=== PATIENT | female | born 1955 | race Caucasian/White ===

== ENCOUNTER 2021-04-01 00:29 | Inpatient (IN) | payer MEDICARE ==
[~2021-04-01] VITALS: Ht 154.9 cm; Wt 87.6 kg
[2021-04-01] VITALS (15 sets, daily range): BP systolic 85–136; BP diastolic 46–83
--- NOTE | 2021-04-01 00:35 | NUR ---
APPLICATION DEFENSE MANAGER RN: ENEDELIA CALDERÓN. PATIENT UPDATED ON PLAN OF CARE. NO NOTED ADDITIONAL NEEDS AT THIS TIME. CALL LIGHT WITHIN REACH, BED IN LOWEST LOCKED POSITION, SIDE RAILSX2 UP. PRIMARY RN AWARE.
[2021-04-01] MEDS ORDERED: PLEASE ENTER ALLERGIES MC SCH (01:00)
[2021-04-01] MEDS ORDERED: PANTOPRAZOLE 80 MG in SODIUM CHLORIDE 0.9% 50 ML IVPB ONE (01:00)
[2021-04-01] MEDS ORDERED: PANTOPRAZOLE 80 MG in SODIUM CHLORIDE 0.9% 100 ML IV SCH (01:00)
[2021-04-01] MEDS ORDERED: LIDOCAINE-MPF 1%, 5ML ONE (01:36)
--- NOTE | 2021-04-01 01:47 | NUR ---
PT SENT FROM [facility] FOR RECTAL BLEEDING X5 DAYS. PT REPORTS SOME DARK STOOL WITH N/V. NO IV ACCESS AT THIS TIME. DR DUKE TO BEDSIDE FOR A CENTRAL LINE. DR DUKE AWARE OF VS.
--- NOTE | 2021-04-01 02:07 | NUR ---
BEDSIDE REPORT GIVEN TO VICTOR MANUEL MANCILLA. DR DUKE IN ROOM DOING CENTRAL LINE.
--- NOTE | 2021-04-01 02:10 | NUR ---
BEDSIDE REPORT FROM YENNI RN, PT CARE TRANSFERRED AT THIS TIME. PT CENTRAL LINE BEING PLACED AT THIS TIME AND FRIEND AT BS. Patient is resting comfortably in bed. Bed in lowest, rails engaged, call light on lap. PT IS HYPOTENSIVE AT THIS TIME. LEONID.
[2021-04-01] MEDS ORDERED: ASPI-963 PO (02:14)
[2021-04-01] MEDS ORDERED: MULTIVITAMIN PO (02:14)
[2021-04-01] MEDS ORDERED: LISINOPRIL HCTZ PO (02:14)
[2021-04-01 02:27] LABS: BASOPHILS % (AUTO) 1 % (0-1); EOSINOPHILS % (AUTO) 1 % (1-7); LYMPHOCYTES % (AUTO) 28 % (22-44); MEAN CORPUSCULAR HEMOGLOBIN 28.5 pg (27.0-34.8); MEAN CORPUSCULAR HGB CONC 33.3 g/dL (32.4-35.8); MEAN PLATELET VOLUME 9.9 fL (7.4-10.4); MONOCYTES % (AUTO) 13 % (2-9); NEUTROPHILS % (AUTO) 58 % (42-75); PLATELET COUNT 74 x10^3/uL (130-400); RED BLOOD COUNT 2.47 x10^6/uL (3.82-5.3); RED CELL DISTRIBUTION WIDTH 27.3 % (9.6-15.2)
[2021-04-01 02:29] LABS: INTERNATIONAL NORMALIZED RATIO 1.58 (0.93-1.1); PROTHROMBIN TIME 16.5 Seconds (9.6-11.5)
[2021-04-01 02:33] LABS: ALANINE AMINOTRANSFERASE 17 U/L (12-78); ALBUMIN 1.8 g/dL (3.4-5.0); ANION GAP 9 mmol/L (5-15); CALCIUM 7.9 mg/dL (8.5-10.1); CHLORIDE 104 mmol/L (98-107); CREATININE 0.54 mg/dL (0.55-1.02)
[2021-04-01 02:38] LABS: ALKALINE PHOSPHATASE 65 U/L (45-117); BILIRUBIN,TOTAL 3.3 mg/dL (0.2-1.0); TOTAL PROTEIN 5.5 g/dL (6.4-8.2); TROPONIN I < 0.015 ng/mL (0.000-0.045)
[2021-04-01 02:54] LABS: <PLATELET ESTIMATE> DECREASED; <PLT MORPHOLOGY> NORMAL PLT MORPH; ANISOCYTOSIS 1+; OVALOCYTES 1+; TARGET CELLS 1+
[2021-04-01] MEDS ORDERED: ACETAMINOPHEN 325 MG TABLET ONE (02:54)
[2021-04-01] MEDS ORDERED: ACETAMINOPHEN 325 MG TABLET PO ONE (03:00)
--- NOTE | 2021-04-01 03:00 | NUR ---
RELIEF RN: STARTED ON TRANSFUSION. INFUSING WELL ON PUMP TO R IJ.
--- NOTE | 2021-04-01 03:11 | NUR ---
ELIAN RN: ADMITTING MD AT .
[2021-04-01] MEDS ORDERED: LORazepam 2 MG/ML, 1ML IV PRN ×5 (03:30)
[2021-04-01] MEDS ORDERED: LORazepam 0.5MG TABLET PO PRN (03:30)
[2021-04-01] MEDS ORDERED: ONDANSETRON 2MG/ML, 2ML IV PRN (03:30)
[2021-04-01] MEDS ORDERED: LORazepam 1MG TABLET PO PRN ×4 (03:30)
--- NOTE | 2021-04-01 03:45 | NUR ---
REPORT CALLED TO LOU RN, PT CARE TO BE TRANSFERRED UPON ARRIVAL TO THE FLOOR. WCTM. Patient is resting comfortably in bed. Bed in lowest, rails engaged, call light on lap. FRIEND AT BS. HOSPITALIST AT BS FOR EVAL AND POC. WCTM.
[2021-04-01] MEDS ORDERED: OCTREOTIDE 50 MCG/ML, 1ML (0.05MG/ML) IVPush ONE (04:00)
[2021-04-01] MEDS: CEFTRIAXONE 1,000 MG in DEXTROSE 5% 50 ML IVPB SCH (05:20)
[2021-04-01] MEDS: SODIUM CHLORIDE 0.9% 1,000 ML IV SCH ×2 (05:21→16:00)
[2021-04-01] MEDS ORDERED: PHYTONADIONE 10 MG/ML, 1ML SQ ONE (06:00)
[2021-04-01 06:29] LABS: IRON LEVEL 14 mcg/dL (50-170)
[2021-04-01 06:30] LABS: % IRON SATURATION 12 % (20-55); TOTAL IRON BINDING CAPACITY 114 mcg/dL (250-450)
[2021-04-01] MEDS ORDERED: PANTOPRAZOLE 40 MG IV ONE (06:30)
[2021-04-01] MEDS ORDERED: OCTREOTIDE 500 MCG in SODIUM CHLORIDE 0.9% 99 ML IV PRN (06:30)
[2021-04-01] MEDS ORDERED: PANTOPRAZOLE 40 MG IV IVPush ONE (06:30)
[2021-04-01] MEDS ORDERED: MULTIVITAMINS/MINERALS TABLET PO SCH (09:00)
[2021-04-01] MEDS: PANTOPRAZOLE 40 MG IV IVPush SCH ×2 (09:20→20:37)
[2021-04-01 11:00] LABS: ANION GAP 7 mmol/L (5-15); CALCIUM 7.7 mg/dL (8.5-10.1); CHLORIDE 106 mmol/L (98-107); CREATININE 0.55 mg/dL (0.55-1.02)
[2021-04-01] MEDS ORDERED: HYDROmorphone 1 MG/ML, 1ML INJ IVPush PRN (12:00)
[2021-04-01] MEDS ORDERED: EPHEDRINE 50 MG/ML, 1ML IVPush PRN (12:00)
[2021-04-01] MEDS ORDERED: ACETAMINOPHEN 325 MG TABLET PO PRN (12:00)
[2021-04-01] MEDS ORDERED: hydrALAzine 20 MG/ML, 1ML IV PRN (12:00)
[2021-04-01] MEDS ORDERED: LABETALOL 5MG/ML, 20ML IV PRN (12:00)
[2021-04-01] MEDS ORDERED: PROMETHAZINE 25 MG/ML, 1ML IVPush PRN (12:00)
[2021-04-01] MEDS ORDERED: OXYcodone 5 MG/5 ML ORAL.SOL UDC PO PRN (12:00)
[2021-04-01] MEDS ORDERED: ONDANSETRON 2MG/ML, 2ML IVPush PRN (12:00)
[2021-04-01] MEDS ORDERED: FENTANYL PF 100 MCG/2ML IV PRN (12:00)
[2021-04-01] MEDS ORDERED: CHLORHEXIDINE 15 ML UDC ONE (12:10)
[2021-04-01] MEDS ORDERED: PROPOFOL 10 MG/ML, 20ML ONE (12:45)
[2021-04-01] MEDS ORDERED: GOLYTELY 4,000ML ORAL.SOL PO ONE (18:00)
[2021-04-02 01:16] VITALS: BP 122/83
[2021-04-02 01:23] VITALS: BP 116/77
[2021-04-02] MEDS: CEFTRIAXONE 1,000 MG in DEXTROSE 5% 50 ML IVPB SCH (04:23)
[2021-04-02] MEDS ORDERED: CHLORHEXIDINE 15 ML UDC ONE (07:07)
[2021-04-02] MEDS ORDERED: OXYcodone 5 MG/5 ML ORAL.SOL UDC PO PRN (07:30)
[2021-04-02] MEDS ORDERED: ONDANSETRON 2MG/ML, 2ML IVPush PRN (07:30)
[2021-04-02] MEDS ORDERED: hydrALAzine 20 MG/ML, 1ML IV PRN (07:30)
[2021-04-02] MEDS ORDERED: FENTANYL PF 100 MCG/2ML IV PRN (07:30)
[2021-04-02] MEDS ORDERED: LABETALOL 5MG/ML, 20ML IV PRN (07:30)
[2021-04-02] MEDS ORDERED: PROMETHAZINE 25 MG/ML, 1ML IVPush PRN (07:30)
[2021-04-02] MEDS ORDERED: ACETAMINOPHEN 325 MG TABLET PO PRN (07:30)
[2021-04-02] MEDS ORDERED: PROMETHAZINE 25 MG SUPP PR PRN (07:30)
[2021-04-02] MEDS ORDERED: METHOCARBAMOL 1,000 MG in DEXTROSE 5% 100 ML IV PRN (07:30)
[2021-04-02] MEDS ORDERED: LORazepam 2 MG/ML, 1ML IVPush PRN (07:30)
[2021-04-02] MEDS ORDERED: PROPOFOL 10 MG/ML, 20ML ONE (07:33)
[2021-04-02] MEDS: PANTOPRAZOLE 40 MG IV IVPush SCH ×2 (11:56→23:37)
[2021-04-02 14:11] VITALS: BP 101/70
[2021-04-02] MEDS ORDERED: FUROSEMIDE 40 MG/4 ML IV ONE (14:30)
[2021-04-02] MEDS ORDERED: POTASSIUM CHLORIDE 20 MEQ TAB.ER.PRT PO ONE (14:30)
[2021-04-02 19:49] VITALS: BP 119/75
[2021-04-03 02:45] VITALS: BP 109/72
[2021-04-03 05:21] LABS: BASOPHILS % (AUTO) 1 % (0-1); EOSINOPHILS % (AUTO) 4 % (1-7); LYMPHOCYTES % (AUTO) 24 % (22-44); MEAN CORPUSCULAR HEMOGLOBIN 29.2 pg (27.0-34.8); MEAN PLATELET VOLUME 9.2 fL (7.4-10.4); MONOCYTES % (AUTO) 11 % (2-9); NEUTROPHILS % (AUTO) 60 % (42-75); PLATELET COUNT 64 x10^3/uL (130-400); RED BLOOD COUNT 3.25 x10^6/uL (3.82-5.3); RED CELL DISTRIBUTION WIDTH 24.9 % (9.6-15.2)
[2021-04-03 05:26] LABS: CHLORIDE 108 mmol/L (98-107)
[2021-04-03 05:35] LABS: ALANINE AMINOTRANSFERASE 16 U/L (12-78); ALBUMIN 1.9 g/dL (3.4-5.0); ALKALINE PHOSPHATASE 70 U/L (45-117); ANION GAP 5 mmol/L (5-15); BILIRUBIN,TOTAL 3.5 mg/dL (0.2-1.0); CALCIUM 8.4 mg/dL (8.5-10.1); CREATININE 0.61 mg/dL (0.55-1.02); TOTAL PROTEIN 5.8 g/dL (6.4-8.2)
[2021-04-03] MEDS ORDERED: POTASSIUM CHLORIDE 20 MEQ TAB.ER.PRT PO ONE (07:00)
[2021-04-03 07:11] VITALS: BP 116/79
[2021-04-03] MEDS: PANTOPRAZOLE 40 MG IV IVPush SCH (07:56)
[2021-04-03] MEDS ORDERED: IRON SUCROSE COMPLEX 100MG/5ML IV SCH (09:00)
[2021-04-03 12:55] VITALS: BP 116/75
[2021-04-03] MEDS ORDERED: ACETAMINOPHEN 325 MG TABLET ONE (15:57)
[2021-04-03] MEDS ORDERED: ACETAMINOPHEN 325 MG TABLET PO ONE (16:00)
== END 2021-04-03 16:02 | disposition home health service (06) | DRG 432 ==
LOC: ED 03:38 → EDIP 04:33 → 4WST 04:35
PROVIDERS: ADMIT Internal Medicine; ATTEND Family Medicine
PROC: 02H633Z Insertion of Infusion Device into Right Atrium, Percutaneous Approach (ICD-10-PCS; 2021-04-01)
PROC: B548ZZA Ultrasonography of Superior Vena Cava, Guidance (ICD-10-PCS; 2021-04-01)
PROC: 0DJ08ZZ Inspection of Upper Intestinal Tract, Via Natural or Artificial Opening Endoscopic (ICD-10-PCS; 2021-04-01)
PROC: 30233N1 Transfusion of Nonautologous Red Blood Cells into Peripheral Vein, Percutaneous Approach (ICD-10-PCS; principal; 2021-04-01 12:30)
PROC: 0DBL8ZZ Excision of Transverse Colon, Via Natural or Artificial Opening Endoscopic (ICD-10-PCS; 2021-04-02)
DX: K70.30 Alcoholic cirrhosis of liver without ascites (principal); I85.11 Secondary esophageal varices with bleeding; D62 Acute posthemorrhagic anemia; D68.9 Coagulation defect, unspecified; K76.6 Portal hypertension; Z20.822 Contact with and (suspected) exposure to COVID-19; D69.6 Thrombocytopenia, unspecified; E83.119 Hemochromatosis, unspecified; F10.20 Alcohol dependence, uncomplicated; F17.200 Nicotine dependence, unspecified, uncomplicated; I10 Essential (primary) hypertension; K63.5 Polyp of colon; K31.89 Other diseases of stomach and duodenum; I95.9 Hypotension, unspecified
CPT/HCPCS: 36415; 36430; 36556; 71045; 76700; 80048; 80053; 82728; 83540; 83550; 83735; 84484; 85014; 85018; 85025; 85610; 86850; 86900; 86923; 87635; 88305; 93005; G0378; J0696; J1940; J2354; J2704; J3430; C9113; J7030; P9016

== ENCOUNTER 2021-04-30 12:31 | Inpatient (IN) | payer MEDICARE ==
[~2021-04-30] VITALS: Ht 154.9 cm; Wt 102.3 kg
[2021-04-30] VITALS (8 sets, daily range): BP systolic 81–99; BP diastolic 44–52
[~2021-04-30 12:31] MED LIST: ASPI-963 PO; LISINOPRIL HCTZ PO; MULTIVITAMIN PO
--- NOTE | 2021-04-30 12:31 | NUR ---
65 YR OLD FEMALEARR[facility]. PER REPORT PT WITH PROGRESSIVE WEAKNESS AND GI BLEED X1 WK. TODAY UNABLE TO AMBULATE, HAD GCS 14 (4-4-6). NOW STILL UNABLE TO STATE YEAR. PT HAD C/O ABD PAIN. BP 84/50 PT HAS 22G IN RFA PT RECEIVE APPROX 800CC NS AND 60MG KETAMINE BOND UNDERWRITER. PT PLACED ON MONITORS, ST PER MONITOR. PT VOCAL ABOUT "I DONT WANT TO BE A PIN CUSHION. I DONT WANT TO BE POKED AGAIN. DONT HURT ME" EXPLAINED TO PT MULTIPLE TIMES, ADDITIONAL IV ACCESS NEEDED R/T GI BLEED. PT ARRIVES WITH DRIED BLOOD TO BOTTOMS OF FEET.
--- NOTE | 2021-04-30 12:41 | NUR ---
DR KRUSE AT BEDSIDE TO SONYA PT
[2021-04-30] MEDS ORDERED: SODIUM CHLORIDE 0.9% 1,000ML IVBOLUS ONE (13:00)
[2021-04-30] MEDS ORDERED: SODIUM CHLORIDE FLUSH 10ML SYR IVF ONE (13:00)
[2021-04-30] MEDS ORDERED: PANTOPRAZOLE 80 MG in SODIUM CHLORIDE 0.9% 50 ML IVPB ONE (13:00)
--- NOTE | 2021-04-30 13:19 | NUR ---
MEDICATION REQUESTED FROM PHARMACY. PT ST PER MONITOR. NO ACTIVE BLEEDING NOTED. NS BOLUS INFUSING ORDERED. PT FREQUENTLY ASKING "WHEN WILL THIS BE OVER. WHEN CAN I GO HOME" PT PROVIDED WITH LEMON GLYCERIN SWABS, WARM BLANKET AND CHANDAN PAWS WARMER. AWAITING TEST RESULTS
[2021-04-30 13:22] LABS: BASOPHILS % (AUTO) 1 % (0-1); EOSINOPHILS % (AUTO) 0 % (1-7); LYMPHOCYTES % (AUTO) 10 % (22-44); MEAN CORPUSCULAR HEMOGLOBIN 29.5 pg (27.0-34.8); MEAN CORPUSCULAR HGB CONC 33.6 g/dL (32.4-35.8); MEAN PLATELET VOLUME 10.2 fL (7.4-10.4); MONOCYTES % (AUTO) 14 % (2-9); NEUTROPHILS % (AUTO) 76 % (42-75); PLATELET COUNT 82 x10^3/uL (130-400); RED BLOOD COUNT 1.98 x10^6/uL (3.82-5.3)
[2021-04-30 13:28] LABS: ALANINE AMINOTRANSFERASE 12 U/L (12-78); ALBUMIN 1.6 g/dL (3.4-5.0); ANION GAP 19 mmol/L (5-15); CALCIUM 7.5 mg/dL (8.5-10.1); CHLORIDE 103 mmol/L (98-107); CREATININE 1.06 mg/dL (0.55-1.02)
[2021-04-30 13:30] LABS: ALKALINE PHOSPHATASE 65 U/L (45-117); BILIRUBIN,TOTAL 2.5 mg/dL (0.2-1.0); TOTAL PROTEIN 4.9 g/dL (6.4-8.2)
[2021-04-30 13:31] LABS: INTERNATIONAL NORMALIZED RATIO 1.96 (0.93-1.1); PROTHROMBIN TIME 20.3 Seconds (9.6-11.5)
[2021-04-30] MEDS ORDERED: DOXY100C5 PO (13:32)
[2021-04-30] MEDS ORDERED: ALPR0.257 SL (13:40)
[2021-04-30] MEDS ORDERED: FURO-93 PO (13:41)
[2021-04-30] MEDS ORDERED: CLIN300C9 PO (13:41)
[2021-04-30 13:42] LABS: ANISOCYTOSIS 1+; HYPOCHROMIA 1+
[2021-04-30] MEDS ORDERED: POTA1POW4 MT (13:42)
[2021-04-30 13:43] LABS: <PLATELET ESTIMATE> DECREASED; ECHINOCYTES 1+; OVALOCYTES 1+; TARGET CELLS 1+
[2021-04-30] MEDS ORDERED: ACET-1770 PO (13:43)
[2021-04-30] MEDS ORDERED: LISI1TAB39 PO (13:43)
[2021-04-30 13:44] LABS: <PLT MORPHOLOGY> NORMAL PLT MORPH
[2021-04-30] MEDS: PANTOPRAZOLE 80 MG in SODIUM CHLORIDE 0.9% 100 ML IV SCH ×3 (13:46→23:00)
--- NOTE | 2021-04-30 13:49 | NUR ---
FABIAN RN: BLOOD BANK CALLED SAMPLE IS CLOTTED, WOULD LIKE [address] [facility] [address] KRUSE, PT TO GO TO OR IN 10MIN
--- NOTE | 2021-04-30 13:57 | NUR ---
PURPLE SLIP TO LAB
[2021-04-30] MEDS ORDERED: OCTREOTIDE 500 MCG in SODIUM CHLORIDE 0.9% 99 ML IV PRN (14:00)
[2021-04-30] MEDS ORDERED: OCTREOTIDE 100MCG/ML, 1ML (0.1MG/ML) IV ONE (14:00)
[2021-04-30] MEDS ORDERED: POTASSIUM CHLORIDE 40 MEQ in SODIUM CHLORIDE 0.9% 500 ML IV ONE (14:00)
--- NOTE | 2021-04-30 14:06 | NUR ---
BLOOD CONSENT SIGNED VERBAL, [facility] MARIANA, REPORT BACK JOSÉ MIGUEL
--- NOTE | 2021-04-30 14:16 | NUR ---
COVID SWAB COLLECTED AND TAKEN TO LAB. PT WITH EPISODE OF VOMITING BRIGHT RED BLOOD 100MLS. DR KRUSE NOTIFIED. PT ST PER MONITOR. LEJ PLACED IN 20G. ATTEMPT WAS MADE BY DR KRUSE IN REJ. BLOOD CONT TO INFUSE. NO S/S OF ADVERSE REACTION.
[2021-04-30] MEDS ORDERED: CEFTRIAXONE 1,000 MG in DEXTROSE 5% 50 ML IVPB ONE (14:30)
--- NOTE | 2021-04-30 14:34 | NUR ---
PT TO OR WITH VALET PARKER AND RN
[2021-04-30] MEDS ORDERED: SUGAMMADEX 200 MG/2 ML IVPush ONE (14:43)
[2021-04-30] MEDS ORDERED: MIDAZOLAM 1 MG/ML, 2ML ONE (14:43)
[2021-04-30] MEDS ORDERED: ROCURONIUM 10 MG/ML,10ML ONE (14:43)
[2021-04-30] MEDS ORDERED: ETOMIDATE 40 MG/20 ML ONE (14:43)
[2021-04-30] MEDS ORDERED: SUCCINYLCHOLINE 20 MG/ML, 10ML ONE (14:43)
--- NOTE | 2021-04-30 14:43 | NUR ---
PER DR KRUSE "NO BLOOD CULTURES NEEDED PRIOR TO ROCEPHIN ADMIN"
--- NOTE | 2021-04-30 14:45 | NUR ---
REPORT TO ORGANIC CHEMISTRY PROFESSOR. BLOOD, PROTONIX AND ROCEPHIN STILL INFUSING AT TIME OF TRANSFER.
[2021-04-30] MEDS ORDERED: POLYETHYLENE GLYCOL 17 GM PACKET PO PRN (15:00)
[2021-04-30] MEDS ORDERED: BISACODYL 10 MG SUPP PR PRN (15:00)
[2021-04-30] MEDS ORDERED: SODIUM CHLORIDE 0.9% 250 ML IV ONE (15:00)
[2021-04-30] MEDS ORDERED: PHYTONADIONE 10 MG in SODIUM CHLORIDE 0.9% 50 ML IV ONE (15:00)
[2021-04-30] MEDS ORDERED: ONDANSETRON 2MG/ML, 2ML IVPush PRN ×2 (15:00→15:30)
[2021-04-30] MEDS ORDERED: HYDROmorphone 1 MG/ML, 1ML INJ IV PRN (15:30)
[2021-04-30] MEDS ORDERED: FENTANYL PF 100 MCG/2ML IV PRN (15:30)
[2021-04-30] MEDS ORDERED: DIAZEPAM 5 MG/ML, 2ML IV PRN ×2 (15:30)
[2021-04-30] MEDS ORDERED: PROMETHAZINE 25 MG/ML, 1ML IV PRN (15:30)
[2021-04-30] MEDS ORDERED: OXYcodone 5 MG/5 ML ORAL.SOL UDC PO PRN (15:30)
[2021-04-30] MEDS ORDERED: MEPERIDINE/PF 25MG/0.5ML IVPush PRN (15:30)
[2021-04-30] MEDS ORDERED: LABETALOL 5MG/ML, 20ML IV PRN (15:30)
[2021-04-30] MEDS ORDERED: hydrALAzine 20 MG/ML, 1ML IV PRN (15:30)
[2021-04-30] MEDS ORDERED: KETOROLAC 30 MG/1 ML IV PRN (15:30)
[2021-04-30] MEDS ORDERED: ALBUTEROL SULFATE 2.5 MG/3 ML NPPB PRN (15:30)
[2021-04-30] MEDS ORDERED: ONDANSETRON 2MG/ML, 2ML ONE (15:56)
[2021-04-30] MEDS ORDERED: FENTANYL PF 100 MCG/2ML ONE (16:15)
[2021-04-30] MEDS ORDERED: LORazepam 2 MG/ML, 1ML ONE (17:16)
[2021-04-30] MEDS: LORazepam 2 MG/ML, 1ML IVPush PRN ×2 (17:17→17:27)
[2021-04-30] MEDS ORDERED: KSCALE TO 4.5 IV SCH (18:00)
[2021-04-30] MEDS: NS + 40MEQ KCL 1,000 ML IV SCH (18:41)
[2021-04-30] MEDS ORDERED: MAGNESIUM SULFATE PMX 2GM/50ML 50 ML IV ONE (19:30)
[2021-04-30] MEDS: OCTREOTIDE 500 MCG in SODIUM CHLORIDE 0.9% 99 ML IV PRN (19:56)
[2021-04-30] MEDS: LACTULOSE 10 GM/15 ML UDC PO SCH (21:00)
[2021-04-30] MEDS ORDERED: DIPH25TA65 PO (23:14)
[2021-04-30] MEDS ORDERED: POTA20TA91 PO (23:14)
[2021-05-01] MEDS ORDERED: POTASSIUM CHLORIDE 30 MEQ in SODIUM CHLORIDE 0.9% 500 ML IV ONE (00:30)
[2021-05-01] MEDS: PANTOPRAZOLE 80 MG in SODIUM CHLORIDE 0.9% 100 ML IV SCH ×3 (00:47→21:20)
[2021-05-01] MEDS: OCTREOTIDE 500 MCG in SODIUM CHLORIDE 0.9% 99 ML IV PRN ×2 (03:53→15:24)
[2021-05-01] MEDS: NS + 40MEQ KCL 1,000 ML IV SCH (05:20)
[2021-05-01] MEDS: [UNRECOGNIZED DRUG - REMARK] IV SCH ×2 (06:00)
[2021-05-01 06:23] LABS: BASOPHILS % (AUTO) 1 % (0-1); EOSINOPHILS % (AUTO) 1 % (1-7); LYMPHOCYTES % (AUTO) 26 % (22-44); MEAN CORPUSCULAR HEMOGLOBIN 30.2 pg (27.0-34.8); MEAN CORPUSCULAR HGB CONC 34.8 g/dL (32.4-35.8); MEAN PLATELET VOLUME 9.8 fL (7.4-10.4); MONOCYTES % (AUTO) 12 % (2-9); NEUTROPHILS % (AUTO) 60 % (42-75); PLATELET COUNT 74 x10^3/uL (130-400); RED CELL DISTRIBUTION WIDTH 16.2 % (9.6-15.2)
[2021-05-01 06:27] LABS: INTERNATIONAL NORMALIZED RATIO 1.53 (0.93-1.1)
[2021-05-01 06:29] LABS: ALANINE AMINOTRANSFERASE 14 U/L (12-78); ALBUMIN 1.7 g/dL (3.4-5.0); ANION GAP 9 mmol/L (5-15); CALCIUM 7.1 mg/dL (8.5-10.1); CHLORIDE 110 mmol/L (98-107); CREATININE 0.81 mg/dL (0.55-1.02)
[2021-05-01 06:32] LABS: ALKALINE PHOSPHATASE 49 U/L (45-117); BILIRUBIN,TOTAL 4.7 mg/dL (0.2-1.0); TOTAL PROTEIN 4.7 g/dL (6.4-8.2)
[2021-05-01] MEDS ORDERED: POTASSIUM CHLORIDE PMX 100 ML IV ONE (07:00)
[2021-05-01] MEDS ORDERED: POTASSIUM CHLORIDE 20 MEQ in SODIUM CHLORIDE 0.9% 250 ML IV ONE (07:00)
[2021-05-01] MEDS ORDERED: MAGNESIUM SULFATE PMX 2GM/50ML 50 ML IV ONE (07:30)
[2021-05-01] MEDS ORDERED: SODIUM PHOSPHATE 20 MMOL in SODIUM CHLORIDE 0.9% 500 ML IV ONE (07:30)
[2021-05-01] MEDS: POTASSIUM CHLORIDE 20 MEQ PACKET PO SCH ×2 (07:45→16:43)
[2021-05-01] MEDS: PHYTONADIONE 10 MG/ML, 1ML SQ SCH (07:45)
[2021-05-01] MEDS: LACTULOSE 10 GM/15 ML UDC PO SCH ×2 (07:45→20:10)
[2021-05-01] MEDS: CEFTRIAXONE 1,000 MG in DEXTROSE 5% 50 ML IVPB SCH (15:51)
[2021-05-01 15:57] VITALS: BP 91/61
[2021-05-01 19:24] VITALS: BP 104/65
[2021-05-01] MEDS ORDERED: SODIUM CHLORIDE 0.9%, 500ML IVBOLUS ONE (23:00)
[2021-05-02 01:26] VITALS: BP 98/59
[2021-05-02] MEDS: OCTREOTIDE 500 MCG in SODIUM CHLORIDE 0.9% 99 ML IV PRN ×2 (01:36→17:18)
[2021-05-02 06:36] LABS: BASOPHILS % (AUTO) 2 % (0-1); EOSINOPHILS % (AUTO) 4 % (1-7); LYMPHOCYTES % (AUTO) 31 % (22-44); MEAN CORPUSCULAR HEMOGLOBIN 30.3 pg (27.0-34.8); MEAN CORPUSCULAR HGB CONC 34.1 g/dL (32.4-35.8); MEAN PLATELET VOLUME 9.4 fL (7.4-10.4); MONOCYTES % (AUTO) 14 % (2-9); NEUTROPHILS % (AUTO) 50 % (42-75); PLATELET COUNT 90 x10^3/uL (130-400); RED CELL DISTRIBUTION WIDTH 17.1 % (9.6-15.2)
[2021-05-02 06:43] VITALS: BP 94/58
[2021-05-02 06:47] LABS: INTERNATIONAL NORMALIZED RATIO 1.39 (0.93-1.1); PROTHROMBIN TIME 14.6 Seconds (9.6-11.5)
[2021-05-02 06:50] LABS: CHLORIDE 110 mmol/L (98-107)
[2021-05-02 06:56] LABS: ALANINE AMINOTRANSFERASE 15 U/L (12-78); ALBUMIN 1.8 g/dL (3.4-5.0); ALKALINE PHOSPHATASE 49 U/L (45-117); ANION GAP 7 mmol/L (5-15); BILIRUBIN,TOTAL 3.2 mg/dL (0.2-1.0); CALCIUM 7.2 mg/dL (8.5-10.1); CREATININE 0.88 mg/dL (0.55-1.02)
[2021-05-02] MEDS: PANTOPRAZOLE 80 MG in SODIUM CHLORIDE 0.9% 100 ML IV SCH (10:14)
[2021-05-02] MEDS: PHYTONADIONE 10 MG/ML, 1ML SQ SCH (10:46)
[2021-05-02] MEDS: LACTULOSE 10 GM/15 ML UDC PO SCH ×2 (10:46→21:22)
[2021-05-02 12:05] VITALS: BP 105/63
[2021-05-02] MEDS: CEFTRIAXONE 1,000 MG in DEXTROSE 5% 50 ML IVPB SCH (16:33)
[2021-05-02] MEDS: PANTOPRAZOLE 40 MG IV IVPush SCH (17:17)
[2021-05-02 19:24] VITALS: BP 106/70
[2021-05-03] MEDS: LORazepam 2 MG/ML, 1ML IVPush PRN (01:01)
[2021-05-03 01:29] VITALS: BP 104/62
[2021-05-03] MEDS: OCTREOTIDE 500 MCG in SODIUM CHLORIDE 0.9% 99 ML IV PRN ×2 (01:59→13:19)
[2021-05-03] MEDS: PANTOPRAZOLE 40 MG IV IVPush SCH ×2 (04:58→16:34)
[2021-05-03 06:29] LABS: BASOPHILS % (AUTO) 2 % (0-1); EOSINOPHILS % (AUTO) 6 % (1-7); LYMPHOCYTES % (AUTO) 31 % (22-44); MEAN CORPUSCULAR HEMOGLOBIN 30.5 pg (27.0-34.8); MEAN CORPUSCULAR HGB CONC 34.2 g/dL (32.4-35.8); MEAN PLATELET VOLUME 8.9 fL (7.4-10.4); MONOCYTES % (AUTO) 13 % (2-9); NEUTROPHILS % (AUTO) 49 % (42-75); PLATELET COUNT 75 x10^3/uL (130-400); RED CELL DISTRIBUTION WIDTH 17.6 % (9.6-15.2)
[2021-05-03 06:34] VITALS: BP 96/58
[2021-05-03 06:40] LABS: ANION GAP 5 mmol/L (5-15); CALCIUM 7.6 mg/dL (8.5-10.1); CHLORIDE 111 mmol/L (98-107)
[2021-05-03] MEDS ORDERED: SODIUM PHOSPHATE 20 MMOL in SODIUM CHLORIDE 0.9% 500 ML IV ONE (07:30)
[2021-05-03] MEDS: LACTULOSE 10 GM/15 ML UDC PO SCH ×2 (08:07→20:25)
[2021-05-03 12:48] VITALS: BP 103/70
[2021-05-03] MEDS: CEFTRIAXONE 1,000 MG in DEXTROSE 5% 50 ML IVPB SCH (15:29)
[2021-05-03] MEDS ORDERED: TRANEXAMIC ACID 100 MG/ML, 10ML ONE (17:55)
[2021-05-03 20:55] VITALS: BP 107/72
[2021-05-04] MEDS: LORazepam 2 MG/ML, 1ML IVPush PRN (00:09)
[2021-05-04 01:37] VITALS: BP 102/68
[2021-05-04] MEDS: PANTOPRAZOLE 40 MG IV IVPush SCH (04:41)
[2021-05-04 06:57] VITALS: BP 120/76
[2021-05-04] MEDS: LACTULOSE 10 GM/15 ML UDC PO SCH ×2 (09:00→20:07)
[2021-05-04 10:44] LABS: BASOPHILS % (AUTO) 2 % (0-1); EOSINOPHILS % (AUTO) 2 % (1-7); LYMPHOCYTES % (AUTO) 23 % (22-44); MEAN CORPUSCULAR HEMOGLOBIN 30.6 pg (27.0-34.8); MEAN CORPUSCULAR HGB CONC 33.5 g/dL (32.4-35.8); MEAN PLATELET VOLUME 8.8 fL (7.4-10.4); MONOCYTES % (AUTO) 13 % (2-9); NEUTROPHILS % (AUTO) 60 % (42-75); PLATELET COUNT 64 x10^3/uL (130-400); RED BLOOD COUNT 2.95 x10^6/uL (3.82-5.3); RED CELL DISTRIBUTION WIDTH 18.3 % (9.6-15.2)
[2021-05-04] MEDS: PANTOPRAZOLE 40MG TABLET PO SCH (10:47)
[2021-05-04 10:52] LABS: ALANINE AMINOTRANSFERASE 17 U/L (12-78); ALBUMIN 2.2 g/dL (3.4-5.0); ANION GAP 10 mmol/L (5-15); CALCIUM 8.1 mg/dL (8.5-10.1); CHLORIDE 110 mmol/L (98-107); CREATININE 0.85 mg/dL (0.55-1.02)
[2021-05-04 10:52] LABS: INTERNATIONAL NORMALIZED RATIO 1.4 (0.93-1.1); PROTHROMBIN TIME 14.7 Seconds (9.6-11.5)
[2021-05-04 10:54] LABS: ALKALINE PHOSPHATASE 64 U/L (45-117); BILIRUBIN,TOTAL 3.6 mg/dL (0.2-1.0); TOTAL PROTEIN 6.2 g/dL (6.4-8.2)
[2021-05-04 14:56] VITALS: BP 120/79
[2021-05-04] MEDS: CEFTRIAXONE 1,000 MG in DEXTROSE 5% 50 ML IVPB SCH (15:45)
[2021-05-04 18:50] VITALS: BP 134/85
[2021-05-04] MEDS: DIPHENHYDRAMINE 25 MG CAPSULE PO PRN (20:10)
[2021-05-05 00:07] VITALS: BP 110/67
[2021-05-05] MEDS: OXYcodone IR 5MG TABLET PO PRN (00:20)
[2021-05-05] MEDS ORDERED: LORazepam 2 MG/ML, 1ML IVPush PRN ×2 (01:30)
[2021-05-05] MEDS: PANTOPRAZOLE 40MG TABLET PO SCH (05:35)
[2021-05-05 07:58] VITALS: BP 112/75
[2021-05-05] MEDS: LACTULOSE 10 GM/15 ML UDC PO SCH ×2 (09:25→21:31)
[2021-05-05 10:48] VITALS: BP 116/74
[2021-05-05 13:52] VITALS: BP 108/73
[2021-05-05] MEDS: CEFTRIAXONE 1,000 MG in DEXTROSE 5% 50 ML IVPB SCH (16:31)
[2021-05-05 18:53] LABS: CLOSTRIDIUM DIFFICILE ANTIGEN POSITIVE; CLOSTRIDIUM DIFFICILE TOXIN NEGATIVE (Negative)
[2021-05-05 19:13] VITALS: BP 108/75
[2021-05-05] MEDS: VANCOMYCIN 50 MG/ML ORAL SUSP PO SCH (21:31)
[2021-05-06 01:01] VITALS: BP 108/73
[2021-05-06] MEDS: VANCOMYCIN 50 MG/ML ORAL SUSP PO SCH ×4 (03:37→21:09)
[2021-05-06] MEDS: PANTOPRAZOLE 40MG TABLET PO SCH (06:07)
[2021-05-06 09:21] VITALS: BP 106/70
[2021-05-06] MEDS: LACTULOSE 10 GM/15 ML UDC PO SCH ×2 (09:59→21:09)
[2021-05-06 14:03] VITALS: BP 110/72
[2021-05-06] MEDS: CEFTRIAXONE 1,000 MG in DEXTROSE 5% 50 ML IVPB SCH (17:20)
[2021-05-06 18:35] VITALS: BP 113/81
[2021-05-07 01:22] VITALS: BP 116/76
[2021-05-07] MEDS: VANCOMYCIN 50 MG/ML ORAL SUSP PO SCH ×4 (03:05→22:01)
[2021-05-07] MEDS: PANTOPRAZOLE 40MG TABLET PO SCH (06:15)
[2021-05-07 07:12] VITALS: BP 129/66
[2021-05-07] MEDS: LACTULOSE 10 GM/15 ML UDC PO SCH ×2 (09:26→22:01)
[2021-05-07] MEDS: ACETAMINOPHEN 325 MG TABLET PO PRN (11:30)
[2021-05-07] MEDS ORDERED: SODIUM CHLORIDE 0.9% 1,000 ML IV SCH (12:30)
[2021-05-07] MEDS: OXYcodone IR 5MG TABLET PO PRN (13:28)
[2021-05-07 14:00] VITALS: BP 117/72
[2021-05-07 14:57] LABS: ANION GAP 6 mmol/L (5-15); CALCIUM 8.4 mg/dL (8.5-10.1); CHLORIDE 112 mmol/L (98-107); CREATININE 0.88 mg/dL (0.55-1.02)
[2021-05-07] MEDS: CEFTRIAXONE 1,000 MG in DEXTROSE 5% 50 ML IVPB SCH (18:07)
[2021-05-07 22:05] VITALS: BP 123/80
[2021-05-08 02:59] VITALS: BP 110/73
[2021-05-08] MEDS: VANCOMYCIN 50 MG/ML ORAL SUSP PO SCH ×4 (03:05→21:55)
[2021-05-08] MEDS: PANTOPRAZOLE 40MG TABLET PO SCH (05:33)
[2021-05-08 06:44] VITALS: BP 105/55
[2021-05-08] MEDS: LACTULOSE 10 GM/15 ML UDC PO SCH ×2 (07:50→21:55)
[2021-05-08 13:50] VITALS: BP 121/63
[2021-05-08] MEDS: CEFTRIAXONE 1,000 MG in DEXTROSE 5% 50 ML IVPB SCH (17:43)
[2021-05-08] MEDS: ONDANSETRON 2MG/ML, 2ML IVPush PRN (19:19)
[2021-05-08 19:26] VITALS: BP 124/80
[2021-05-09 00:25] VITALS: BP 136/80
[2021-05-09] MEDS: VANCOMYCIN 50 MG/ML ORAL SUSP PO SCH ×2 (04:25→10:01)
[2021-05-09] MEDS: ONDANSETRON 2MG/ML, 2ML IVPush PRN ×2 (04:26→10:00)
[2021-05-09] MEDS: PANTOPRAZOLE 40MG TABLET PO SCH (06:02)
[2021-05-09 08:36] VITALS: BP 120/74
[2021-05-09] MEDS: LACTULOSE 10 GM/15 ML UDC PO SCH ×2 (10:01→19:55)
[2021-05-09] MEDS ORDERED: metroNIDAZOLE 500 MG TABLET PO SCH (10:30)
[2021-05-09 13:15] VITALS: BP 115/74
[2021-05-09] MEDS: RIFAXIMIN 200 MG TABLET PO SCH ×3 (13:49→19:56)
[2021-05-09] MEDS: ACETAMINOPHEN 325 MG TABLET PO PRN (16:56)
[2021-05-09 19:23] VITALS: BP 118/75
[2021-05-09] MEDS: FIDAXOMICIN 200 MG TABLET PO SCH (19:56)
[2021-05-09] MEDS: DIPHENHYDRAMINE 25 MG CAPSULE PO PRN (21:51)
[2021-05-10 00:39] VITALS: BP 115/57
[2021-05-10] MEDS: PANTOPRAZOLE 40MG TABLET PO SCH (06:10)
[2021-05-10 08:55] VITALS: BP 106/70
[2021-05-10] MEDS: LACTULOSE 10 GM/15 ML UDC PO SCH ×2 (09:27→20:15)
[2021-05-10] MEDS: FIDAXOMICIN 200 MG TABLET PO SCH ×2 (09:27→20:15)
[2021-05-10] MEDS: RIFAXIMIN 200 MG TABLET PO SCH ×3 (09:27→22:25)
[2021-05-10] MEDS ORDERED: RIFA200T5 PO (13:08)
[2021-05-10] MEDS ORDERED: FIDA200T PO (13:08)
[2021-05-10 15:00] VITALS: BP 119/71
[2021-05-10 18:53] VITALS: BP 109/71
[2021-05-11 00:29] VITALS: BP 107/70
[2021-05-11] MEDS: PANTOPRAZOLE 40MG TABLET PO SCH (05:01)
[2021-05-11 07:54] VITALS: BP 102/68
[2021-05-11] MEDS: RIFAXIMIN 200 MG TABLET PO SCH (09:51)
[2021-05-11] MEDS: FIDAXOMICIN 200 MG TABLET PO SCH (09:51)
[2021-05-11] MEDS: LACTULOSE 10 GM/15 ML UDC PO SCH (09:51)
[2021-05-11 13:13] VITALS: BP 121/72
== END 2021-05-11 15:33 | DRG 441 ==
LOC: OR 14:23 → EDIP 14:33 → CSU 17:22 → 5SO 05-01 15:44 → 3N 05-03 23:28
PROVIDERS: ADMIT Internal Medicine; ATTEND Internal Medicine
PROC: 30233N1 Transfusion of Nonautologous Red Blood Cells into Peripheral Vein, Percutaneous Approach (ICD-10-PCS; 2021-04-30)
PROC: 30233K1 Transfusion of Nonautologous Frozen Plasma into Peripheral Vein, Percutaneous Approach (ICD-10-PCS; 2021-04-30)
PROC: 30233R1 Transfusion of Nonautologous Platelets into Peripheral Vein, Percutaneous Approach (ICD-10-PCS; 2021-04-30)
PROC: 06L38CZ Occlusion of Esophageal Vein with Extraluminal Device, Via Natural or Artificial Opening Endoscopic (ICD-10-PCS; principal; 2021-04-30 15:45)
DX: K72.90 Hepatic failure, unspecified without coma (principal); R57.8 Other shock; N17.0 Acute kidney failure with tubular necrosis; I85.11 Secondary esophageal varices with bleeding; D62 Acute posthemorrhagic anemia; E87.2 Acidosis; K76.6 Portal hypertension; D68.9 Coagulation defect, unspecified; A04.72 Enterocolitis due to Clostridium difficile, not specified as recurrent; E46 Unspecified protein-calorie malnutrition; Z68.41 Body mass index [BMI] 40.0-44.9, adult; K70.31 Alcoholic cirrhosis of liver with ascites; Z20.822 Contact with and (suspected) exposure to COVID-19; D69.6 Thrombocytopenia, unspecified; K31.89 Other diseases of stomach and duodenum; R16.1 Splenomegaly, not elsewhere classified; K70.11 Alcoholic hepatitis with ascites; F10.10 Alcohol abuse, uncomplicated; I10 Essential (primary) hypertension; I87.8 Other specified disorders of veins; E87.6 Hypokalemia; Z80.9 Family history of malignant neoplasm, unspecified; Z82.49 Family history of ischemic heart disease and other diseases of the circulatory system; Z81.1 Family history of alcohol abuse and dependence; Z79.899 Other long term (current) drug therapy
CPT/HCPCS: 36415; 36430; 80048; 80053; 80074; 82105; 82140; 83735; 84100; 84132; 85018; 85025; 85610; 85730; 86850; 86900; 86923; 87081; 87324; 87635; 93005; 96361; 96374; 96375; 99285; G0378; J0696; J2250; J2354; J2405; J3010; J3370; J3430; J3480; C9113; J0330; J2060; J3475; J7030; J7040; J7050; P9016; P9017; P9035; Q0163